=== PATIENT | female | born 1990 | race Caucasian/White ===

== ENCOUNTER → 2024-04-27 09:15 | Outpatient (BNV) | payer OTHER, SELFPAY | PROVIDERS: Visit Provider Psychiatry & Neurology Psychiatry | DX: F34.89 Other specified persistent mood disorders (principal); F90.9 Attention-deficit hyperactivity disorder, unspecified type; F41.3 Other mixed anxiety disorders; F43.10 Post-traumatic stress disorder, unspecified | CPT/HCPCS: 99214 ==

== ENCOUNTER 2024-05-01 08:43 | Outpatient (REF) | payer OTHER, SELFPAY ==
--- NOTE | 2024-05-01 | ECG_ITS ---
Test Reason : f39, f90.8 Blood Pressure : / mmHG Vent. Rate : 068 BPM Atrial Rate : 068 BPM P-R Int : 154 ms QRS Dur : 080 ms QT Int : 370 ms P-R-T Axes : 047 070 071 degrees QTc Int : 393 ms Normal sinus rhythm Normal ECG No previous ECGs available Referred By: Saloni Mixon Electronically Signed By:DONTRELL HENRY MD
[2024-05-01 09:23] LABS: MANUAL DIFF FLAG NO
[2024-05-01 09:27] LABS: Basophils Percent Auto 0.5 % (0-2); Eosinophils Absolute Auto 0.1 X10*3/uL (0.0-0.4); Eosinophils Percent Auto 0.8 % (0-4); Hematocrit 40.9 % (37.0-47.0); Imm Gran Abs Auto 0.01 X10*3/uL (0.00-0.03); Imm Gran Pct Auto 0.2 % (0.0-0.4); Lymphocytes Absolute Auto 2.5 X10*3/uL (1.2-4.9); Lymphocytes Percent Auto 39.7 % (20-40); Mean Corpuscular HGB Conc 34.2 g/dl (31.0-35.0); Mean Corpuscular Hemoglobin 30.9 pg (27.0-33.0); Mean Corpuscular Volume 90.3 fL (80.0-98.0); Mean Platelet Volume 11.4 fL (9.4-12.3); Monocytes Absolute Auto 0.4 X10*3/uL (0.1-1.2); Monocytes Percent Auto 5.9 % (2-11); Neutrophils Absolute Auto 3.4 x10*3/uL (2.0-8.3); Neutrophils Percent Auto 52.9 % (45-73); Platelet Count 243 X10*3/uL (160-400); Red Blood Count 4.53 X10*6/uL (4.20-5.50); Red Cell Distribution Width 11.5 % (11.0-16.0); White Blood Count 6.3 X10*3/uL (4.8-10.8)
[2024-05-01 09:36] LABS: Estimated Average Glucose 105 mg/dL; Hemoglobin A1C 121.4003 umol/L; Hemoglobin A1c % 5.3 % (<6.0); Total Hemoglobin (HGBA1C) 3483.5756 umol/L
[2024-05-01 10:05] LABS: Iron 117 mcg/dL (30-160); Magnesium 2.1 mg/dL (1.6-2.6); Percent Iron Saturation 38 % (15-50); Total Iron Binding Capacity 312 mcg/dL (228-428); Unsaturated Iron Binding 195 ug/dL
[2024-05-01 10:12] LABS: Syphilis Screen Nonreactive (Nonreactive)
[2024-05-01 10:15] LABS: Ferritin 41 ng/mL (10-122); Free T4 (Free Thyroxine) 1.06 ng/dL (0.71-1.85); Thyroid Stimulating Hormone 2.78 uIU/mL (0.32-4.0); Vitamin D 25-OH Total 18.3 ng/mL (>30)
[2024-05-01 10:17] LABS: HBc Num1 0.15 S/CO (0.00-0.79); HIV AB/AG Nonreactive (Nonreactive); HIV Num 1 0.05 S/CO (0.00-0.99); Hepatitis B Core Antibody Nonreactive (Nonreactive); Hepatitis B Surface Antigen Negative (Negative); ~HepC Num1 0.22 S/CO (0.00-0.79); ~Hepatitis B Surface Antibody NONREACTIVE (Nonreactive); ~Hepatitis C Antibody Nonreactive (Nonreactive)
[2024-05-01 10:27] LABS: Folate 13.6 ng/mL (> or = 4.0); Vitamin B12 437 pg/mL (200-900)
[2024-05-01 12:12] LABS: CT PCR NOT DETECTED (Not Detect.); NG PCR NOT DETECTED (Not Detect.)
[2024-05-02 17:19] LABS: Homocysteine 7.5 umol/L (<10.4)
[2024-05-02 18:23] LABS: Prolactin 60.4 ng/mL
--- OUTSIDE RECORDS SUMMARY | 2024-05-02 19:05 | XMS_ITS | Data Portability ---
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 The member reports experiencing these symptoms since high school but worse in the past 1.5 months. She began self treatment with Prevacid 3 weeks ago. Differential diagnosis includes: GERD, PUD, Duodenal ulcer, EOE, Celiac Disease, H.pylori and SIBO. To further evaluate and manage the member's symptoms, the following steps will be taken: -Discussion of possible causes of bloating, including dietary factors, gastrointestinal conditions, and stress. -Labs to include CBC, CMP, Celiac and H.pylori stool -Member advised to stop prevacid for 2 full weeks before leaving stool sample. -Recommended famotidine 20mg BID to maintain acid control while off PPI. then may resume after leaving stool sample if needed. -[facility] is noted to increase symptoms -[facility] at [facility] as she is feeling better and knows her food triggers. - Patient educated on lifestyle changes for GERD such as the importance of healthy weight maintenance, small, frequent meals, sleeping with the head of the bed elevated, not eating within 3 hours of lying down at night and avoiding reflux aggravating foods such as fried, greasy, spicy, citrus fruits, tomato based foods, chocolate, coffee, ETOH, smoking, marijuana, etc. Also to avoid sparkling beverages, drinking from a straw and sugar free gum to help prevent bloating and cramping. -Recommend Low Fodmap diet, this was reviewed. -Barium swallow vs EGD to evaluate for PUD, Duodenal ulcer, structure or EOE d/t vermin exterminator GERD, epigastric pain on empty stomach and dysphagia=will discuss with supervising MD. -looser stools may be from lansoprazole or recently starting flagyl. if does not self resolve can incorporate a fiber supplement to help bulk stool. -Possibly extend course of flagyl as this may be treating SIBO. Will discuss with supervising MD. Plan for Follow-up: The patient will follow up 6 weeks to assess the response to treatment and adjust the management plan accordingly. If there are any significant changes in symptoms or the appearance of new symptoms, the patient is instructed to chat or seek medical attention sooner. Acuity Level Assessment Sample dialogue: ? Over the past 30 days, to what extent did your GI symptoms impact your usual activities such as work, self-care, or spending time with others? Perceived stress level: High Quality of life impact: Moderate Referral to: Provider Additional comments: CC Orders: Labs: yes Rx - pharmacy/OTC: yes Scope Referral: pending MD consult Followup with PCP: as scheduled RD/HC/BHP referrals (no traditional HC): Follow-up Appointment: 6 weeks Reminder SUPRIYA: Make sure ICD 10 code is added to encounter [email or web address] Not available 04/09/2023 21:08:49 Plan of Treatment Reminders Order Date Submit Date Provider Last Modified By Organization Details Last Modified Time Details Appointments None recorded. Lab CBC w/ auto diff 2022 023 [facility], [address] [place], [address], 4 23:29:23 CMP, serum or plasma 2022 023 [facility], [address], [place], [address], 4 23:29:22 H pylori Ag, stool 2022 023 [facility], [address] [place], [address], 4 12:36:01 celiac disease comprehensi ve panel, serum 2022 023 [facility], [address] [facility], [place], [address], 4 23:29:24 Referral None recorded. Procedures None recorded. Surgeries None recorded. Imaging None recorded. Medication Orders None recorded. Patient TargetsNo targets recorded. Patient Instructions Encounter Date Encounter Id Patient Instructions Last Modified By Organization Details Last Modified Time 04/08/2023 [id number] Rodo Solano, It was wonderful to meet you today. I look forward to working with you on your journey to GI wellness. Please see below for a summary of today's goals and plan we discussed during our time together: 1. You have been referred to a GI Behavioral Health Provider who will assist you with personalized behavioral strategies designed to improve your GI symptoms and enhance your overall functioning. 2 I have sent your lab tests to include CBC, CMP, Celiac and H.pylori stool to your preferred lab. Please remember to stop prevacid for 2 full weeks before leaving stool sample. - I recommend famotidine 20mg BID to maintain acid control while off PPI. Then you may stop famotidine and may resume prevacid after leaving stool sample. 3. Here are some important tips to try to help reduce your symptoms: maintain a healthy weight, eat small, frequent meals, get regular exercise, sleep with the head of the bed elevated about 30 degrees, maintain good hydration and fiber intake, avoid eating within 3 hours of lying down at night and avoiding reflux aggravating foods such as fried, greasy, spicy, citrus fruits, tomato based foods, chocolate, coffee, alcohol and smoking (including marijuana), etc. Also try to avoid sparkling beverages, drinking from a straw and sugar free gum to help prevent bloating and cramping. -I recommend a Low Fodmap diet. It may be helpful to keep a food diary to document your food and stress triggers. https://resources .[employer].com/d ietary-guide/comp mmuocaguy-zsgr-gk -ndh-cgckoy-rjhl/ 4. Looser stools may be from the prevacid or flagyl. if does not self resolve can incorporate a fiber supplement to help bulk stool. 5. I will discuss with my supervising MD if we should pursue a barium swallow vs EGD to evaluate your vermin exterminator heartburn and trouble swallowing. I will let you know next week. Your care team referrals have been processed. You can self-schedule your appointments within the supriya. You are also welcome to chat the Care Coordination team with any questions, concerns or updates. It was a pleasure meeting with you today and I look forward to seeing you in follow-up in 6 weeks. Kindly, AMISHA Munoz [email or web address] Not available 04/09/2023 21:11:10 Reason for Referral None Reported. Results Created Date Observation Date Name Description Value Unit Range Abnormal Flag Note LastModifiedBy Organization Detail LastModifiedTime 07/11/19 24 07/11/2023 COMPR EHENS JOHNNA METAB OLIC PANEL glucose 96 mg/dL 65-139 normal Non-f astin g refer ence inter ameena Not Available [facility] [address], [address], 07/11/2023 23:29:22 07/11/19 24 07/11/2023 COMPR EHENS JOHNNA METAB OLIC PANEL urea nitrogen (BUN) 10 mg/dL 7-25 normal Not Available [facility] [address], [address], 07/11/2023 23:29:22 07/11/19 24 07/11/2023 COMPR EHENS JOHNNA METAB OLIC PANEL creatinine 0.75 mg/dL 0.50-0 .97 normal Not Available [facility] [address], [address], 07/11/2023 23:29:22 07/11/19 24 07/11/2023 COMPR EHENS JOHNNA METAB OLIC PANEL eGFR 109 mL/mi n/1.7 3m2 > or = 60 normal Not Available [facility] [address], [address], 07/11/2023 23:29:22 07/11/19 24 07/11/2023 COMPR EHENS JOHNNA METAB OLIC PANEL BUN/creatini ne ratio SEE NOTE: (calc ) 6-22 Not Repor lenin: BUN and Creat inine are withi n refer ence range . Not Available [facility] [address], [place], [address], 07/11/2023 23:29:22 07/11/19 24 07/11/2023 COMPR EHENS JOHNNA METAB OLIC PANEL sodium 140 mmol/ L 135-14 6 normal Not Available [facility] [address], [place], [address], 07/11/2023 23:29:22 07/11/19 24 07/11/2023 COMPR EHENS JOHNNA METAB OLIC PANEL potassium 4.0 mmol/ L 3.5-5. 3 normal Not Available [facility] [address], [place], [address], 07/11/2023 23:29:22 07/11/19 24 07/11/2023 COMPR EHENS JOHNNA METAB OLIC PANEL chloride 105 mmol/ L 98-110 normal Not Available [facility] [address], [place], [address], 07/11/2023 23:29:22 07/11/19 24 07/11/2023 COMPR EHENS JOHNNA METAB OLIC PANEL carbon dioxide 28 mmol/ L 20-32 normal Not Available [facility] [address], [place], [address], 07/11/2023 23:29:22 07/11/19 24 07/11/2023 COMPR EHENS JOHNNA METAB OLIC PANEL calcium 9.1 mg/dL 8.6-10 .2 normal Not Available [facility] [address], [place], [address], 07/11/2023 23:29:22 07/11/19 24 07/11/2023 COMPR EHENS JOHNNA METAB OLIC PANEL protein, total 6.9 g/dL 6.1-8. 1 normal Not Available [facility] [address], [place], [address], 07/11/2023 23:29:22 07/11/19 24 07/11/2023 COMPR EHENS JOHNNA METAB OLIC PANEL albumin 4.4 g/dL 3.6-5. 1 normal Not Available [facility] [address], [place], [address], 07/11/2023 23:29:22 07/11/19 24 07/11/2023 COMPR EHENS JOHNNA METAB OLIC PANEL globulin 2.5 g/dL_ (calc ) 1.9-3. 7 normal Not Available [facility] [address], [place], [address], 07/11/2023 23:29:22 07/11/19 24 07/11/2023 COMPR EHENS JOHNNA METAB OLIC PANEL albumin/glob ulin ratio 1.8 (calc ) 1.0-2. 5 normal Not Available [facility] [address], [place], [address], 07/11/2023 23:29:22 07/11/19 24 07/11/2023 COMPR EHENS JOHNNA METAB OLIC PANEL bilirubin, total 0.7 mg/dL 0.2-1. 2 normal Not Available [facility] [address], [place], [address], 07/11/2023 23:29:22 07/11/19 24 07/11/2023 COMPR EHENS JOHNNA METAB OLIC PANEL alkaline phosphatase 64 U/L 31-125 normal Not Available [facility] [address], [place], [address], 07/11/2023 23:29:22 07/11/19 24 07/11/2023 COMPR EHENS JOHNNA METAB OLIC PANEL AST 17 U/L 10-30 normal Not Available [facility] [place] [facility] [address], [place], [address], 07/11/2023 23:29:22 07/11/19 24 07/11/2023 COMPR EHENS JOHNNA METAB OLIC PANEL ALT 13 U/L 6-29 normal Not Available [facility] [address], [place], [address], 07/11/2023 23:29:22 07/11/19 24 07/11/2023 CBC (INCL UDES DIFF/ PLT) white blood cell count 6.8 thous and/u L 3.8-10 .8 normal Not Available [facility] [address], [place], [address], 07/11/2023 23:29:23 07/11/19 24 07/11/2023 CBC (INCL UDES DIFF/ PLT) red blood cell count 4.49 augusto on/uL 3.80-5 .10 normal Not Available [facility] [address], [place], [address], 07/11/2023 23:29:23 07/11/19 24 07/11/2023 CBC (INCL UDES DIFF/ PLT) hemoglobin 13.5 g/dL 11.7-1 5.5 normal Not Available [facility] [address], [place], [address], 07/11/2023 23:29:23 07/11/19 24 07/11/2023 CBC (INCL UDES DIFF/ PLT) hematocrit 40.9 % 35.0-4 5.0 normal Not Available [facility] [address], [place], [address], 07/11/2023 23:29:23 07/11/19 24 07/11/2023 CBC (INCL UDES DIFF/ PLT) MCV 91.1 fL 80.0-1 00.0 normal Not Available [facility] [place] [facility] [address], [place], [address], 07/11/2023 23:29:23 07/11/19 24 07/11/2023 CBC (INCL UDES DIFF/ PLT) MCH 30.1 pg 27.0-3 3.0 normal Not Available [facility] [place] [facility] [address], [place], [address], 07/11/2023 23:29:23 07/11/19 24 07/11/2023 CBC (INCL UDES DIFF/ PLT) MCHC 33.0 g/dL 32.0-3 6.0 normal Not Available [facility] [place] [facility] [address], [place], [address], 07/11/2023 23:29:23 07/11/19 24 07/11/2023 CBC (INCL UDES DIFF/ PLT) RDW 11.7 % 11.0-1 5.0 normal Not Available [facility] [place] [facility] [address], [place], [address], 07/11/2023 23:29:23 07/11/19 24 07/11/2023 CBC (INCL UDES DIFF/ PLT) platelet count 326 thous and/u L 140-40 0 normal Not Available [facility] [place] [facility] [address], [place], [address], 07/11/2023 23:29:23 07/11/19 24 07/11/2023 CBC (INCL UDES DIFF/ PLT) MPV 11.2 fL 7.5-12 .5 normal Not Available [facility] [address], [place], [address], 07/11/2023 23:29:23 07/11/19 24 07/11/2023 CBC (INCL UDES DIFF/ PLT) absolute neutrophils 3427 cells /uL 1500-7 800 normal Not Available [facility] [place] [facility] [address], [place], [address], 07/11/2023 23:29:23 07/11/19 24 07/11/2023 CBC (INCL UDES DIFF/ PLT) absolute lymphocytes 2734 cells /uL 850-39 00 normal Not Available [facility] [place] [facility] [address], [place], [address], 07/11/2023 23:29:23 07/11/19 24 07/11/2023 CBC (INCL UDES DIFF/ PLT) absolute monocytes 449 cells /uL 200-95 0 normal Not Available [facility] [place] [facility] [address], [place], [address], 07/11/2023 23:29:23 07/11/19 24 07/11/2023 CBC (INCL UDES DIFF/ PLT) absolute eosinophils 109 cells /uL 15-500 normal Not Available [facility] [place] [facility] [address], [place], [address], 07/11/2023 23:29:23 07/11/19 24 07/11/2023 CBC (INCL UDES DIFF/ PLT) absolute basophils 82 cells /uL 0-200 normal Not Available [facility] [place] [facility] [address], [place], [address], 07/11/2023 23:29:23 07/11/19 24 07/11/2023 CBC (INCL UDES DIFF/ PLT) neutrophils 50.4 % 38-80 normal Not Available [facility] [place] [facility] [address], [place], [address], 07/11/2023 23:29:23 07/11/19 24 07/11/2023 CBC (INCL UDES DIFF/ PLT) lymphocytes 40.2 % 15-49 normal Not Available [facility] [place] [facility] [address], [place], [address], 07/11/2023 23:29:23 07/11/19 24 07/11/2023 CBC (INCL UDES DIFF/ PLT) monocytes 6.6 % 0-13 normal Not Available [facility] [place] [facility] [address], [place], [address], 07/11/2023 23:29:23 07/11/19 24 07/11/2023 CBC (INCL UDES DIFF/ PLT) eosinophils 1.6 % 0-8 normal Not Available [facility] [place] [facility] [address], [place], [address], 07/11/2023 23:29:23 07/11/19 24 07/11/2023 CBC (INCL UDES DIFF/ PLT) basophils 1.2 % 0-2 normal Not Available [facility] [place] [facility] [address], [place], [address], 07/11/2023 23:29:23 07/11/19 24 07/15/2023 MARIVEL C DISEA SE COMPR EHENS JOHNNA PANEL interpretati on No serol ogica l evide nce of marivel c disea se. tTG IgA may neeraj lize in indiv idual s with marivel c disea se who maint ain a glute n-nydia e diet. Consi funmilayo HLA DQ2 and DQ8 testi ng to rule out marivel c disea se. Marivel c disea se is extre li rare in the absen ce of DQ2 or DQ8. Not Available [facility] [place] [facility] [address], [place], [address], 07/15/2023 14:35:55 07/11/19 24 07/15/2023 MARIVEL C DISEA SE COMPR EHENS JOHNNA PANEL tissue transglutami nase Ab, IgA <1.0 U/mL normal Value Inter preta tion ----- ----- ----- ---- <15.0 Antib hipolito not detec lenin > or = 15.0 Antib hipolito detec lenin Not Available [facility] [address], [address], 07/15/2023 14:35:55 07/11/19 24 07/15/2023 MARIVEL C DISEA SE COMPR EHENS JOHNNA PANEL immunoglobul in A 224 mg/dL 47-310 normal Not Available [facility] [address], [address], 07/15/2023 14:35:55 07/11/19 24 07/12/2023 HELIC OBACT ER PYLOR I AG, EIA, STOOL helicobacter pylori Ag, EIA, stool SEE NOTE HELIC OBACT ER PYLOR I AG, EIA, STOOL Micro Numbe r: [id number] Test Statu s: Final Speci men Sourc e: Stool Speci men Quali ty: Adequ ate H.pyl jesus Ag: Not Detec lenin Antim icrob ials, apple n pump inhib itors , and bismu th prepa ratio ns inhib it H. pylor i and inges tion up to two weeks prior to testi ng may cause false negat johnna resul ts. If clini mary indic ated the test shoul d be repea lenin on a new speci men obtai bob two weeks after disco ntinu ing treat ment. Refer ence Range : Not Detec lenin Not Available [facility] [address], [address], 07/12/2023 12:36:01 Result Notes None recorded. Problems Name Problem SNOMED Code Status Onset Date Resolution Date Notes Provider Name and Address Organization Details Recorded Time Abdominal bloating 102548018 Active 023 LEONEL ROSALES APN [address] [facility] [address] [address], [place], [address], [facility] [employer] [place] 3 20:26:32 Acid reflux 491153254 Active 023 LEONEL ROSALES APN [address] [facility] [address] [address], [place], [address], [facility] [employer] [place] 3 20:26:38 Anxiety 93327352 Active 023 LEONEL ROSALES [employer]GER [employer]ER [address] [facility] [address] [address], [place], [address], [facility] [employer] [place] 3 20:26:57 Problem Notes None recorded. Procedures Surgical History Date Name Laterality Status Provider Name and Address Organization Details Recorded Time extraction of wisdom tooth completed LEONEL ROSALES [employer] [address] [facility],[address] [address], [place], [address], [facility] [employer] [place] 04/09/2023 20:28:24 Imaging Results None recorded. Procedure Notes None recorded. Medical Equipment None Reported. Allergies No known drug allergies Medications Name Sig Start Date Stop Date Status Note LastModified by Organization Details LastModified Time fluconazole 150 mg tablet 04/09 completed Not Available Not Available Not Available metronidazol e 500 mg tablet active Not Available Not Available Not Available lorazepam 0.5 mg tablet active Not Available Not Available Not Available lansoprazole 15 mg capsule,clemente yed release Take 1 capsule every day by oral route. active Not Available Not Available No t Available buspirone 15 mg tablet active Not Available Not Available No t Available escitalopram 5 mg tablet active Not Available Not Available Not Available Vitals Date Recorded Body height Body mass index (BMI) Body weight Provider Name and Address Organization Details Last Updated DateTime 04/08/2023 160.02 cm 23 kg/m2 88458.01 g LEONEL ROSALES APN [address] [facility] [address] [address], [place], [address], [facility] [employer] [place] 04/09/2023 20:24:58 Social History Question Answer Notes LastModified by Organization Details LastModified Time Tobacco Smoking Status Never Smoker LEONELKALEB ROSALES APN [address] [facility],[address] [address], [place], [address], [facility] [employer] [place] 04/09/2023 20:28:15 What Is Your Level Of Alcohol Consumption? Occasional Rare, 1 Drink/mo Information not available 04/09/2023 Which Illicit Or Recreational Drugs Have You Used? Marijuana Information not available 04/09/2023 Do You Use Any Illicit Or Recreational Drugs? Yes THC Gummie Once A Month Recreationally Information not available 04/09/2023 Have You Used IV Drugs? No Information not available 04/09/2023 Do You Or Have You Ever Used Any Other Forms Of Tobacco Or Nicotine? No Information not available 04/09/2023 Sex: Unknown Functional Status None recorded. Mental Status None recorded. Family History Relationship Description Onset Age of this Age Resolved Age Notes LastModified by Organization Details LastModified Time Brother Gastroesopha geal reflux disease [email or web address] Not available 2022 20:27:18 Mother Gastroesopha geal reflux disease [email or web address] Not available 2022 20:27:18 Sister Gastroesopha geal reflux disease [email or web address] Not available 2022 20:27:18 Medical History Condition Response Pancreatitis N Colon Cancer N Depression N Diverticulitis/Diverticulosis N Arrhythmia N Fibromyalgia N Kidney Disease N Anxiety Y Small Intestinal Bowel Overgrowth (SIBO) N Clostridium difficile N Anemia N Colon Polyps N Diabetes N Hepatitis/Liver Disease N Seizures/Epilepsy N Myocardial Infarction N Hyperlipidemia N Asthma/COPD N Sleep Apnea N GERD/Reflux N Cirrhosis N Heart Disease N Hypertension N Gynecological HistoryNo gynecological history recorded. Obstetrics History GPAL:G 0 P 0 0 0 0 Past Encounters Encounter ID Performer Location Encounter Start Date Encounter Closed Date Diagnosis/Indication Diagnosis SNOMED-CT Code Diagnosis ICD10 Code [id number] LEONEL ROSALES APN [facility] [address] [place] [address] 04/08/2023 12:43:35 04/18/2023 17:50:13 Gastroesophageal reflux disease 520608401 K21.9 Abdominal bloating 33652 9008 R14.0 Esophageal dysphagia 408 87480 R13.19 Health Concerns Section Related Observation LastModified by Organization Detai ls LastModified Time None Recorded Concern Status LastModified by Organization Details LastModified Time None Recorded Advance Directives Directive None Recorded Payers Encounter Date Sequence Insurance Name Policy Number Policy River Covered Member ID River Member ID Guarantor Name 04/08/2023 1 [place] [facility] (HMO) [id number] Xiomara Gutierrez [id number] Xiomara Gutierrez Notes Date Note Type Note Provider Name and Address Organization Details Recorded Time 04/08/2023 text/html Abdominal Distension - OshiReported bypatient.Notes:Prateek suarez is a 32 yo female who presents with a chief complaint of persistent bloating and heartburn. The member reports experiencing these symptoms since high school but worse in the past 1.5 months. She began self treatment with Prevacid 3 weeks ago. Xiomara reports stomach issues since high school beginning with lactose intolerance. During college she used the low fodmap diet to control symptoms. In the past 1.5 months, heartburn and bloat has intensified no matter what she eats and occurs before and after eating. She has less bloat in the morning and it's worst in the evening. Current diet is pescetarian and lactose free, stopped caffeine, avoids citrus and acidic foods, onion and garlic. Symptoms are worse on an empty stomach with epigastric pain so has forced herself to eat every 3 hours. If hungry, she can be nauseous but no vomiting. She notes that if she feels more stressed, her symptoms are worse. She reports dysphagia over the past 1year that is now more noticeable usually with food. Feels it can be hard to push down. She points to her upper throat where she feels the food sticks, primarily bread. She is able to swallow her own secretions and liquids. Does not occur with every meal.Stools have softened to a BSS 5-6 with mild urgency up to 4 times daily since starting prevacid. Passing stool does help relieve bloating.Of note, Xiomara has started prevacid 3 weeks ago and finds her heartburn and dysphagia is better.She denies odynophagia, vomiting, constipation, diarrhea, lower abdominal pain, bloody, black/tarry stool, unintentional weight loss, NSAID use or travel. Interestingly, she is being treated for BV and currently on 1 week of flagyl (has 2 more doses). She reports her bloating symptoms are better since starting the flagyl. Denies family history of gastric or colon cancer, or polyps. [facility] sig for brother, sister and mother with heartburn. The member rates the severity of her symptoms as moderate and she expresses concern about how these symptoms are affecting daily activities and quality of life.Reflux/GERD - OshiReported bypatient.Notes:see above Gastroesophageal Reflux Disease Questionnaire Frequency of Symptoms in the Last Week {{0 (0 day) 1 (1 day) 2 (2-3 days)* 3 (4-7days)}}How often did you have a burning feeling behind your breastbone (heartburn)? {{0 (0 day)* 1 (1 day) 2 (2-3 days) 3 (4-7days)}}How often did you have stomach contents (liquid or food) moving upwards to your throat or mouth (regurgitation)? {{3 (0 day)* 2 (1 day) 1 (2-3 days) 0 (4-7 days)}}How often did you have pain in the center of the upper stomach? {{3 (0 day)* 2 (1 day) 1 (2-3 days) 0 (4-7 days)}}How often did you have nausea? {{0 (0 day)* 1 (1 day) 2 (2-3 days) 3 (4-7days)}}How often did you have difficulty getting a good night? s sleep because of your heartburn and/or regurgitation? {{0 (0 day)* 1 (1 day) 2 (2-3 days) 3 (4-7days)}}How often did you take additional medication for your heartburn and/or regurgitation, other than what the physician told you to take (such as Tums, Rolaids and Maalox)? {{0 1 2 3 4 5 6 7 8 * 9 10 11 12 13 14 15 16 17 18}} Total LEONEL ROSALES APN [address] [place] [address],[address] [address], [place], [address], [facility], AIME 04/09/2023 21:11:25 OBGyn Episode No OBEpisode recorded.
[2024-05-05 15:09] LABS: Methylmalonic Acid 61 nmol/L (55-335)
== END 2024-05-01 08:44 | disposition home or self-care (01) ==
LOC: HO.LAB 08:43
PROVIDERS: Visit Provider Psychiatry & Neurology Psychiatry
DX: F39 Unspecified mood [affective] disorder (principal); F90.8 Attention-deficit hyperactivity disorder, other type; Z13.1 Encounter for screening for diabetes mellitus; Z13.89 Encounter for screening for other disorder
CPT/HCPCS: 82306; 82607; 82728; 82746; 83036; 83090; 83540; 83735; 83921; 84146; 84439; 84443; 85025; 86704; 86706; 86780; 86803; 87340; 87389; 87491; 87591; 93005

== ENCOUNTER → 2024-05-01 09:00 | Outpatient (BNV) | payer OTHER, SELFPAY | PROVIDERS: Visit Provider Internal Medicine Cardiovascular Disease | DX: F39 Unspecified mood [affective] disorder (principal); F90.8 Attention-deficit hyperactivity disorder, other type | CPT/HCPCS: 93010 ==

== ENCOUNTER 2024-05-08 08:59 | Outpatient (REF) | payer OTHER, SELFPAY ==
--- OUTSIDE RECORDS SUMMARY | 2024-05-08 09:13 | XMS_ITS | Data Portability ---
Author Organization [facility] AIME [place] [facility] Address [address], [address], [place] [address] [place] [address] Care Team Providers Care Electronic Warfare Linguist Name Role Phone [facility] Primary Care Provider Assessment Encounter Date Assessment [...] leaving stool sample if needed. 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 Procedures None recorded. Surgeries None recorded. Imaging None recorded. Medication Orders None recorded. Patient TargetsNo targets recorded. Patient Instructions Encounter Date Encounter Id Patient Instructions Last Modified By Organization Details Last Modified Time 04/08/2023 [id number] Rodo Solano, It was wonderful to meet [...] document your food and stress triggers. https://resources .[email or web address].com/d ietary-guide/comp kftqafycy-qkba-bs -rio-tjrlpj-pivb/ 4. Looser stools may be from the prevacid or flagyl. if does not self resolve can incorporate a fiber supplement to help bulk stool. 5. 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 I will let [...] g refer ence inter ameena Not Available [employer] [facility] [address], [address], 07/11/2023 23:29:22 07/11/19 24 07/11/2023 COMPR EHENS JOHNNA METAB OLIC PANEL urea nitrogen (BUN) 10 mg/dL 7-25 normal Not Available [employer] [facility] [address], [address], 07/11/2023 23:29:22 07/11/19 24 07/11/2023 COMPR EHENS JOHNNA METAB OLIC PANEL creatinine 0.75 mg/dL 0.50-0 .97 normal Not Available [employer] [facility] [address], [address], 07/11/2023 23:29:22 07/11/19 24 07/11/2023 COMPR EHENS JOHNNA METAB OLIC PANEL eGFR 109 mL/mi n/1.7 3m2 > or = 60 normal Not Available [employer] [facility] [address], [address], 07/11/2023 23:29:22 07/11/19 24 07/11/2023 COMPR EHENS JOHNNA METAB OLIC PANEL BUN/creatini ne ratio SEE NOTE: (calc ) 6-22 Not Repor lenin: BUN and Creat inine are withi n refer ence range . Not Available [facility] [address], [place], [address], 07/11/2023 23:29:22 07/11/19 24 07/11/2023 COMPR EHENS JOHNNA METAB OLIC PANEL sodium 140 mmol/ L 135-14 6 normal Not Available [facility] [address], [place], [address], 07/11/2023 23:29:22 07/11/19 24 07/11/2023 COMPR EHENS JOHNNA METAB OLIC PANEL potassium 4.0 mmol/ L 3.5-5. 3 normal Not Available [facility] [address], [place], [address], 07/11/2023 23:29:22 07/11/19 24 07/11/2023 COMPR EHENS JOHNNA METAB OLIC PANEL chloride 105 mmol/ L 98-110 normal Not Available [facility] [address], [place], [address], 07/11/2023 23:29:22 07/11/19 24 07/11/2023 COMPR EHENS JOHNNA METAB OLIC PANEL carbon dioxide 28 mmol/ L 20-32 normal Not Available [facility] [address], [place], [address], 07/11/2023 23:29:22 07/11/19 24 07/11/2023 COMPR EHENS JOHNNA METAB OLIC PANEL calcium 9.1 mg/dL 8.6-10 .2 normal Not Available [facility] [address], [place], [address], 07/11/2023 23:29:22 07/11/19 24 07/11/2023 COMPR EHENS JOHNNA METAB OLIC PANEL protein, total 6.9 g/dL 6.1-8. 1 normal Not Available [facility] [address], [place], [address], 07/11/2023 23:29:22 07/11/19 24 07/11/2023 COMPR EHENS JOHNNA METAB OLIC PANEL albumin 4.4 g/dL 3.6-5. 1 normal Not Available [facility] [address], [place], [address], 07/11/2023 23:29:22 07/11/19 24 07/11/2023 COMPR EHENS JOHNNA METAB OLIC PANEL globulin 2.5 g/dL_ (calc ) 1.9-3. 7 normal Not Available [facility] [address], [place], [address], 07/11/2023 23:29:22 07/11/19 24 07/11/2023 COMPR EHENS JOHNNA METAB OLIC PANEL albumin/glob ulin ratio 1.8 (calc ) 1.0-2. 5 normal Not Available [facility] [address], [place], [address], 07/11/2023 23:29:22 07/11/19 24 07/11/2023 COMPR EHENS JOHNNA METAB OLIC PANEL bilirubin, total 0.7 mg/dL 0.2-1. 2 normal Not Available [facility] [address], [place], [address], 07/11/2023 23:29:22 07/11/19 24 07/11/2023 COMPR EHENS JOHNNA METAB OLIC PANEL alkaline phosphatase 64 U/L 31-125 normal Not Available [facility] [employer] [facility] [address], [place], [address], 07/11/2023 23:29:22 07/11/19 24 07/11/2023 COMPR EHENS JOHNNA METAB OLIC PANEL AST 17 U/L 10-30 normal Not Available [facility] [place] [facility] [address], [place], [address], 07/11/2023 23:29:22 07/11/19 24 07/11/2023 COMPR EHENS JOHNNA METAB OLIC PANEL ALT 13 U/L 6-29 normal Not Available [facility] [address], [place], [address], 07/11/2023 23:29:22 07/11/19 24 07/11/2023 CBC (INCL UDES DIFF/ PLT) white blood cell count 6.8 thous and/u L 3.8-10 .8 normal Not Available [facility] [address], [place], [address], 07/11/2023 23:29:23 07/11/19 24 07/11/2023 CBC (INCL UDES DIFF/ PLT) red blood cell count 4.49 augusto on/uL 3.80-5 .10 normal Not Available [facility] [address], [place], [address], 07/11/2023 23:29:23 07/11/19 24 07/11/2023 CBC (INCL UDES DIFF/ PLT) hemoglobin 13.5 g/dL 11.7-1 5.5 normal Not Available [facility] [address], [place], [address], 07/11/2023 23:29:23 07/11/19 24 07/11/2023 CBC (INCL UDES DIFF/ PLT) hematocrit 40.9 % 35.0-4 5.0 normal Not Available [facility] [address], [place], [address], 07/11/2023 23:29:23 07/11/19 24 07/11/2023 CBC (INCL UDES DIFF/ PLT) MCV 91.1 fL 80.0-1 00.0 normal Not Available [facility] [place] [facility] [address], [place], [address], 07/11/2023 23:29:23 07/11/19 24 07/11/2023 CBC (INCL UDES DIFF/ PLT) MCH 30.1 pg 27.0-3 3.0 normal Not Available [facility] [place] [facility] [address], [place], [address], 07/11/2023 23:29:23 07/11/19 24 07/11/2023 CBC (INCL UDES DIFF/ PLT) MCHC 33.0 g/dL 32.0-3 6.0 normal Not Available [facility] [place] [facility] [address], [place], [address], 07/11/2023 23:29:23 07/11/19 24 07/11/2023 CBC (INCL UDES DIFF/ PLT) RDW 11.7 % 11.0-1 5.0 normal Not Available [facility] [place] [facility] [address], [place], [address], 07/11/2023 23:29:23 07/11/19 24 07/11/2023 CBC (INCL UDES DIFF/ PLT) platelet count 326 thous and/u L 140-40 0 normal Not Available [facility] [place] [facility] [address], [place], [address], 07/11/2023 23:29:23 07/11/19 24 07/11/2023 CBC (INCL UDES DIFF/ PLT) MPV 11.2 fL 7.5-12 .5 normal Not Available [facility] [address], [place], [address], 07/11/2023 23:29:23 07/11/19 24 07/11/2023 CBC (INCL UDES DIFF/ PLT) absolute neutrophils 3427 cells /uL 1500-7 800 normal Not Available [facility] [place] [facility] [address], [place], [address], 07/11/2023 23:29:23 07/11/19 24 07/11/2023 CBC (INCL UDES DIFF/ PLT) absolute lymphocytes 2734 cells /uL 850-39 00 normal Not Available [facility] [address], [place], [address], 07/11/2023 23:29:23 07/11/19 24 07/11/2023 CBC (INCL UDES DIFF/ PLT) absolute monocytes 449 cells /uL 200-95 0 normal Not Available [facility] [facility] [address], [place], [address], 07/11/2023 23:29:23 07/11/19 24 07/11/2023 CBC (INCL UDES DIFF/ PLT) absolute eosinophils 109 cells /uL 15-500 normal Not Available [facility] [address], [place], [address], 07/11/2023 23:29:23 07/11/19 24 07/11/2023 CBC (INCL UDES DIFF/ PLT) absolute basophils 82 cells /uL 0-200 normal Not Available [facility] [address], [place], [address], 07/11/2023 23:29:23 07/11/19 24 07/11/2023 CBC (INCL UDES DIFF/ PLT) neutrophils 50.4 % 38-80 normal Not Available [facility] [address], [place], [address], 07/11/2023 23:29:23 07/11/19 24 07/11/2023 CBC (INCL UDES DIFF/ PLT) lymphocytes 40.2 % 15-49 normal Not Available [facility] [address], [place], [address], 07/11/2023 23:29:23 07/11/19 24 07/11/2023 CBC (INCL UDES DIFF/ PLT) monocytes 6.6 % 0-13 normal Not Available [facility] [place] [facility] [address], [place], [address], 07/11/2023 23:29:23 07/11/19 24 07/11/2023 CBC (INCL UDES DIFF/ PLT) eosinophils 1.6 % 0-8 normal Not Available [facility] [place] [facility] [address], [place], [address], 07/11/2023 23:29:23 07/11/19 24 07/11/2023 CBC (INCL UDES DIFF/ PLT) basophils 1.2 % 0-2 normal Not Available [facility] [facility] [address], [place], [address], 07/11/2023 23:29:23 07/11/19 24 07/15/2023 MARIVEL C [...] ce of DQ2 or DQ8. Not Available [facility] [place] [facility] [address], [place], [address], 07/15/2023 14:35:55 07/11/19 24 07/15/2023 MARIVEL C DISEA SE COMPR EHENS JOHNNA PANEL tissue transglutami nase Ab, IgA <1.0 U/mL normal Value Inter preta tion ----- ----- ----- ---- <15.0 Antib hipolito not detec lenin > or = 15.0 Antib hipolito detec lenin Not Available [facility] [address], [address], 07/15/2023 14:35:55 07/11/19 24 07/15/2023 MARIVEL C DISEA SE COMPR EHENS JOHNNA PANEL immunoglobul in A 224 mg/dL 47-310 normal Not Available [facility] [address], [address], 07/15/2023 14:35:55 07/11/19 24 07/12/2023 HELIC OBACT ER PYLOR I AG, EIA, STOOL helicobacter pylori Ag, EIA, stool SEE NOTE HELIC OBACT ER PYLOR I AG, EIA, STOOL Micro Numbe r: [id number] Test Statu s: Final Speci men [...] Range : Not Detec lenin Not Available [facility] [address], [address], 07/12/2023 12:36:01 Result Notes None recorded. Problems Name Problem SNOMED Code Status Onset Date Resolution Date Notes Provider Name and Address Organization Details Recorded Time Abdominal bloating 955628262 Active 023 LEONEL ROSALES APN [address] [facility] [address] [address], [place], [address], [facility] [place] 3 20:26:32 Acid reflux 822058785 Active 023 LEONEL ROSALES APN [address] [facility] [address] [address], [place], [address], [facility] [place] 3 20:26:38 Anxiety 39025848 Active 023 LEONEL ROSALES EXCHANGE ADMINISTRATOR [address] [facility] [address] [address], [place], [address], [facility] [place] 3 20:26:57 Problem Notes None recorded. Procedures Surgical History Date Name Laterality Status Provider Name and Address Organization Details Recorded Time extraction of wisdom tooth completed LEONEL ROSALES EXCHANGE ADMINISTRATOR [address] [facility],[address] [address], [place], [address], [facility] [place] 04/09/2023 20:28:24 Imaging Results [...] Updated DateTime 04/08/2023 160.02 cm 23 kg/m2 44729.01 g LEONEL ROSALES APN [address] [facility] [address] [address], [place], [address], [facility] [place] 04/09/2023 20:24:58 Social History Question Answer Notes LastModified by Organization Details LastModified Time Tobacco Smoking Status Never Smoker LEONELKALEB ROSALES APN [address] [facility],[address] [address], [place], [address], [facility] AIME [place] 04/09/2023 20:28:15 What Is [...] Diagnosis/Indication Diagnosis SNOMED-CT Code Diagnosis ICD10 Code [id number] LEONEL ROSALES APN [facility] [address] [place] [address] 04/08/2023 12:43:35 04/18/2023 17:50:13 Gastroesophageal reflux disease 284882698 K21.9 Abdominal bloating 75538 9008 R14.0 Esophageal dysphagia 408 84313 R13.19 Health Concerns Section Related Observation LastModified by Organization Detai ls LastModified Time None Recorded Concern Status LastModified by Organization Details LastModified Time None Recorded Advance Directives Directive None Recorded Payers Encounter Date Sequence Insurance Name Policy Number Policy River Covered Member ID River Member ID Guarantor Name 04/08/2023 1 [place] HMO [facility] (HMO) [id number] Xiomara Gutierrez [id number] Xiomara Gutierrez Notes Date Note Type [...] of gastric or colon cancer, or polyps. [facility] sig for brother, sister and mother [...] 16 17 18}} Total LEONEL ROSALES APN [address] [place] [address],[address] [address], [place], [address], [facility], AIME 04/09/2023 21:11:25 OBGyn Episode No OBEpisode recorded.
[2024-05-08 10:58] LABS: Alanine Aminotransferase 11 U/L (0-31); Albumin Level 4.4 g/dL (3.5-5.0); Alkaline Phosphatase 68 U/L (39-117); Anion Gap 12 (12-20); Aspartate Amino Transferase 24 U/L (5-31); Bilirubin Total 0.6 mg/dL (0.0-1.0); Blood Urea Nitrogen 11 mg/dL (9-16); Calcium 8.8 mg/dL (8.4-10.2); Carbon Dioxide 26 mmol/L (22-29); Chloride 104 mmol/L (96-108); Cholesterol 144 mg/dL (<200); Estimated Glomerular Filt Rate > 60; Glucose Fasting 94 mg/dL (60-99); HDL Cholesterol 43 mg/dL (>40); LDL Cholesterol Calculated 88 mg/dL (<100); Potassium 3.5 mmol/L (3.3-5.1); Sodium 138 mmol/L (135-145); Total Protein 7.3 g/dL (6.5-8.0); Triglycerides 66 mg/dL (<150)
[2024-05-15 14:23] LABS: Vitamin B1 12 nmol/L (8-30)
== END 2024-05-08 09:00 | disposition home or self-care (01) ==
LOC: HO.LAB 08:59
PROVIDERS: Visit Provider Psychiatry & Neurology Psychiatry
DX: F39 Unspecified mood [affective] disorder (principal); F90.8 Attention-deficit hyperactivity disorder, other type
CPT/HCPCS: 36415; 80053; 80061; 84207; 84425

== ENCOUNTER 2024-05-10 09:00 | Outpatient (RCR) | payer OTHER, SELFPAY ==
[2024-04-23 11:58] VITALS: BMI 24.9
[2024-04-23 12:01] VITALS: BP 120/62; PULSE 88; TEMP 37.2
--- NOTE | 2024-04-23 12:48 | PC.ADMIT ---
Patient is a 33 year old partnered female who was referred to [facility] by crisis d/t increased depression with passive Si (denied plan or intent), PTSD sxs and increased anxiety secondary to work place environment. Patient stated she self presented to crisis as she felt hopeless regarding her situation. Work changes with in the last 3 months. Patient is unsure if she is going to go back to work. She is currently taking a leave of absence from work to work on her mental health. Patient is alert and oriented x4. Calm and cooperative. She presented with depressed mood and anxious affect. She reports having passive SI however this has lessened. Feels hopeful now that she is here at [facility]. Denied any plan of intent to kill herself. She was given a copy of her safety plan if needed. Has plans to move in with her sister in the next month for more support. She also will be closer to where her partner lives. Medications reconciled with patient and patient's pharmacy. She reports she is taking medications as prescribed. She last filled Lorazepam in November 2022 and stated she uses sparingly however this prescription has . Medication education provided. Patient reports three weeks prior to going to crisis she noticed increase in alcohol use as she was drinking one drink 3-4 times a week to cope with the stress. She stated she normally would drink twice a month or less. Stated alcohol makes her feel more depressed and is limiting her use as a result.
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
--- NOTE | 2024-04-26 16:49 | HO.PHP ---
Client's case has been opened and reviewed in team.
--- NOTE | 2024-04-27 22:46 | HO.PHPPROGNO ---
Subjective Subjective Date of Service: 04/27/24 Reason For Visit: anxiety Interim History: Patient reports doing better now. Had some side effects on the first few days, heart palpitations, chest pain increased anxiety for the first hour after taking, but says that resolved after the 2nd day and now she feels it has been very helpful. I think I was just experiencing a lot of anxiety starting on the medication... now I feel much calmer . Anxiety improved. She has not been oversleeping as much, sleeping more regularly, perhaps PHP helping maintain structure. A few nights of undersleeping because not getting to bed early enough with needing to wake earlier for program. Mood still fluctuating, was feeling down this morning. Transient passive SI but feeling hopeful and more goal-directed. She is eager to start on the mood stabilizer as we previously discussed, but for now we agree to hold off starting a new med until early next week (vs over the weekend) just in case she runs into any side effects we can check in. Medication Compliance: Yes Side effects from medications: Yes (as noted above) Attending Groups: Yes Review of Systems Acute medical concerns: No Medical Review of Systems: unchanged Mental Status Exam Mental Status Exam Narrative: MSE Alert, oriented, in no acute distress. Calm, cooperative, engaged. No psychomotor agitation or neurovegetative retardation. Eye contact maintained. Mood depressed, affect variable, brighter than expected, without tearfulness or lability. Speech normal, soft, flat without slowing. Thought process linear, coherent, delay in some responses. Thought content related to stressors, +transient hopelessness, +passive SI, denies any intention, urge or plan to harm self. Denies any aggressive ideation or HI. No paranoia or delusional content elicited. No evidence of psychosis. Insight and judgment fair. Diagnostics Vital Signs (24Hr): BMI result Body Mass Index 24.9 Assessment & Plan Assessment & Plan (1) Other specified persistent mood disorders: Status: Acute Code(s): F34.89 - Other specified persistent mood disorders (2) Attention-deficit hyperactivity disorder, unspecified type: Status: Acute Code(s): F90.9 - Attention-deficit hyperactivity disorder, unspecified type (3) Other mixed anxiety disorders: Status: Acute Code(s): F41.3 - Other mixed anxiety disorders (4) Post traumatic stress disorder (PTSD): Status: Acute Code(s): F43.10 - Post-traumatic stress disorder, unspecified Plan Continue PHP VS reviewed: BP 120/62;?88 bpm on 04/23 (prior to starting guanfacine) continue guanfacine ER 1 mg daily (in AM with stimulant, or afternoon on days without stimulant) cont escitalopram 5 mg qd cont buspirone 22.5 mg BID cont dexmethylphenidate ER 20 mg qam continue other regular medications: lansoprazole 15 mg qd discussed starting ABilify 1-2 mg qd next week Routine lab work, EKG, routine planned for next week Continue to monitor l Patient educated on: diagnosis and medication risk/benefits Informed Consent: understands Reason for contiued partial hosp. stay Substantial Risk for: inability to function and med/psych decompensation Certification I certify that partial hospital treatment is medically necessary due to the symptoms and problems resulting from the patient's mental illness and the failure to treat the patient at the partial hospital level of care would likely result in the patient requiring inpatient psychiatric care which could not be prevented at a less intensive level of care. Total time managing care of this patient today __60__ minutes. Discharge Plan Discharge Attending provider: Saloni Mixon Medications: New guanfacine 1 mg tablet extended release 24 hr 1 mg PO DAILY Qty: 20 0RF Continued lansoprazole 15 mg Capsule,Delayed Release(Dr/Ec) 15 mg PO DAILY Qty: 14 0RF Rx Instructions: Patient takes OTC. buspirone 15 mg tablet 22.5 mg PO BID Qty: 42 0RF Rx Instructions: TAKE 1 AND 1/2 TABLETS BY MOUTH TWICE DAILY Last filled 01/17/24 90 day supply. escitalopram oxalate 5 mg tablet 5 mg PO DAILY Qty: 14 0RF dexmethylphenidate 20 mg capsule,ER biphasic 50-50 20 mg PO QAM Qty: 14 0RF Rx Instructions: Last filled 03/14/24. Stand Alone Forms: Patient Portal Discharge page Print Language: Hungarian
--- NOTE | 2024-05-01 11:46 | HO.PHP ---
05/11/2024? ?11:00 AM - 12:00 PM [facility] Adult Comprehensive Assessment Prog: Outpatient Site: [address] [place] [address] Staff: Thony Wise 06/18/2024? ?9:00 AM - 10:00 AM Psychiatric E/M New - Face to Face v2 Prog: Psychiatric Services Site: [address] [place] [address] Staff: FRANKLIN ARMSTRONG
--- NOTE | 2024-05-03 13:20 | PC.NURSE ---
Patient stated she wants to go to [facility] for new PCP appointment. Plans on giving her 2 week notice at work which will result in her having to go on [employer]. Patient called [facility] [address] office in [facility]. Office # [phone]. Patient gave [facility] her information. She was told that she is put on a wait list and will be receiving a call from them regarding an appointment.
--- NOTE | 2024-05-04 09:06 | HO.PHPPROGNO ---
Subjective Subjective Date of Service: 05/04/24 Reason For Visit: anxiety Interim History: Patient seen for follow-up. Still experiencing rapid shifts in mood. Had a good day or 2 last week because nothing went wrong . At the smallest of sstressors she experiences dramatic emotions that are out of proportion to the stressor. I lose it over the tiniest thing . For example received an email pertaining to work and got so depressed, she experienced a profound sense of not wanting to be alive. I feel like all the pain I've ever experienced comes flooding back..all the fear and loss and re-experiences trauma. The SI is generally passive, denies intention or plan to harm self, but can experience profound hopelessness, helpless and sometimes self loathing on and off throughout the day. She is open to starting a mood stabilizer and we reviewed options and also reviewed labs below. Still experiencing some nightmares at night,, but feels calmer through the day on guanfacine. We may consider starting guanfacine BID but will check vitals first, Denies any adverse effects from her medicaitons. Denies AH, VH, HI. Medication Compliance: Yes Side effects from medications: No Attending Groups: Yes Review of Systems Acute medical concerns: No no complaints, reviewed Medical Review of Systems: unchanged Mental Status Exam Mental Status Exam Narrative: MSE Alert, oriented, in no acute distress. Calm, cooperative, engaged. No psychomotor agitation or neurovegetative retardation. Eye contact maintained. Mood depressed, affect variable, brighter than expected, without tearfulness or lability. Speech normal, soft, flat without slowing. Thought process linear, coherent, delay in some responses. Thought content related to stressors, +transient hopelessness, +passive SI, denies any intention, urge or plan to harm self. Denies any aggressive ideation or HI. No paranoia or delusional content elicited. No evidence of psychosis. Insight and judgment fair. Diagnostics Vital Signs (24Hr): BMI result Body Mass Index 24.9 Assessment & Plan Assessment & Plan (1) Other specified persistent mood disorders: Status: Acute Code(s): F34.89 - Other specified persistent mood disorders (2) Attention-deficit hyperactivity disorder, unspecified type: Status: Acute Code(s): F90.9 - Attention-deficit hyperactivity disorder, unspecified type (3) Other mixed anxiety disorders: Status: Acute Code(s): F41.3 - Other mixed anxiety disorders (4) Post traumatic stress disorder (PTSD): Status: Acute Code(s): F43.10 - Post-traumatic stress disorder, unspecified (5) Vitamin D deficiency: Status: Acute Code(s): E55.9 - Vitamin D deficiency, unspecified (6) Hyperprolactinemia: Status: Inactive Code(s): E22.1 - Hyperprolactinemia Assessment and Plan: idiopathic (patient not (yet) started trtmt w ABilify) Plan start Abilify 2 mg qd continue guanfacine ER 1 mg daily (in AM with stimulant, or afternoon on days without stimulant) cont escitalopram 5 mg qd cont buspirone 22.5 mg BID cont dexmethylphenidate ER 20 mg qam continue other regular medications: lansoprazole 15 mg qd discussed starting ABilify 1-2 mg qd next week Reviewed routine lab work, EKG, routine findings: low vitamin D level 18.3: will start vit D2 50,000 IU/day for deficiency elevated prolactin 60.4. Denies any galactorrhea, visual changes. Sexually active (homosexual), no hx of . Not currently on any medications with known risk and has no hx of being treated with SGA/other antipsychotic medications in the past. We weighed out risk/benefits of starting Abilify with possiblility of further elevating prolactin, however we anticipate given patient's history only a very small dose of mood stabilizer will be needed (2-3.5 mg), and that the benefits at this time outweigh risk. Will continue to monitor prolactin level and will notify PCP or refer to endocrine. Continue to monitor Patient educated on: diagnosis, medication risk/benefits and medical condition Informed Consent: understands Certification I certify that partial hospital treatment is medically necessary due to the symptoms and problems resulting from the patient's mental illness and the failure to treat the patient at the partial hospital level of care would likely result in the patient requiring inpatient psychiatric care which could not be prevented at a less intensive level of care. Total time managing care of this patient today __40__ minutes. Discharge Plan Discharge Attending provider: Saloni Mixon Additional Instructions: 05/11/2024? ?11:00 AM - 12:00 PM CHD Adult Comprehensive Assessment Prog: Outpatient Site: [address] [place] [address] Staff: Thony Wise 06/18/2024? ?9:00 AM - 10:00 AM Psychiatric E/M New - Face to Face v2 Prog: Psychiatric Services Site: [address] [place] [address] Staff: FRANKLIN ARMSTRONG PCP appointment with [facility]. [address] [place] [address] office in [facility]. Office # [phone]. Patient gave [facility] her information. She was told she was put on a wait list and will be receiving a call from them regarding an appointment. Medications: New guanfacine 1 mg tablet extended release 24 hr 1 mg PO DAILY Qty: 20 0RF aripiprazole 2 mg tablet 2 mg PO DAILY Qty: 30 0RF ergocalciferol (vitamin D2) [Vitamin D2] 1,250 mcg (50,000 unit) capsule 1,250 mcg PO QWEEK Qty: 14 0RF Continued lansoprazole 15 mg Capsule,Delayed Release(Dr/Ec) 15 mg PO DAILY Qty: 14 0RF Rx Instructions: Patient takes OTC. buspirone 15 mg tablet 22.5 mg PO BID Qty: 42 0RF Rx Instructions: TAKE 1 AND 1/2 TABLETS BY MOUTH TWICE DAILY Last filled 01/17/24 90 day supply. escitalopram oxalate 5 mg tablet 5 mg PO DAILY Qty: 14 0RF dexmethylphenidate 20 mg capsule,ER biphasic 50-50 20 mg PO QAM Qty: 14 0RF Rx Instructions: Last filled 03/14/24. Stand Alone Forms: Patient Portal Discharge page Print Language: Ukrainian
--- NOTE | 2024-05-10 22:53 | P.PNPSP_ITS ---
Subjective Subjective Date of Service: 05/10/24 Reason For Visit: anxiety Interim History: dc Diagnostics Vital Signs (24Hr): BMI result Body Mass Index 24.9 Assessment & Plan Certification I certify that partial hospital treatment is medically necessary due to the symptoms and problems resulting from the patient's mental illness and the failure to treat the patient at the partial hospital level of care would likely result in the patient requiring inpatient psychiatric care which could not be prevented at a less intensive level of care. Total time managing care of this patient today ____ minutes. Discharge Plan Discharge Attending provider: Saloni Mixon Additional Instructions: 05/11/2024? ?11:00 AM - 12:00 PM CHD Adult Comprehensive Assessment Prog: Outpatient Site: [address] [place] [address] Staff: Thony Wise 06/18/2024? ?9:00 AM - 10:00 AM Psychiatric E/M New - Face to Face v2 Prog: Psychiatric Services Site: [address] [place] [address] Staff: FRANKLIN ARMSTRONG PCP appointment with [facility]. [address] [place] [address] office in [facility]. Office # [phone]. Patient gave [facility] her information. She was told she was put on a wait list and will be receiving a call from them regarding an appointment. Medications: New guanfacine 1 mg tablet extended release 24 hr 1 mg PO DAILY Qty: 20 0RF ergocalciferol (vitamin D2) [Vitamin D2] 1,250 mcg (50,000 unit) capsule 1,250 mcg PO QWEEK Qty: 14 0RF aripiprazole 5 mg tablet 5 mg PO BEDTIME Qty: 30 0RF Continued lansoprazole 15 mg Capsule,Delayed Release(Dr/Ec) 15 mg PO DAILY Qty: 14 0RF Rx Instructions: Patient takes OTC. dexmethylphenidate 20 mg capsule,ER biphasic 50-50 20 mg PO QAM Qty: 14 0RF Rx Instructions: Last filled 03/14/24. aripiprazole 2 mg tablet 2 mg PO DAILY Qty: 30 0RF buspirone 15 mg tablet 22.5 mg PO BID 30 Days Qty: 90 0RF Rx Instructions: TAKE 1 AND 1/2 TABLETS BY MOUTH TWICE DAILY Last filled 01/17/24 90 day supply. escitalopram oxalate 5 mg tablet 5 mg PO DAILY 30 Days Qty: 30 0RF Stand Alone Forms: Patient Portal Discharge page Patient Education: Stress (DC), Mood Disorders (DC), ADHD in Adults (DC), Post Traumatic Stress Disorder (DC) Print Language: Sinhala
== END 2024-05-10 23:59 | disposition home or self-care (01) ==
LOC: HO.PHPA 09:00
PROVIDERS: Visit Provider Psychiatry & Neurology Psychiatry
DX: F34.89 Other specified persistent mood disorders (principal); F90.9 Attention-deficit hyperactivity disorder, unspecified type; F41.3 Other mixed anxiety disorders; F43.10 Post-traumatic stress disorder, unspecified; E55.9 Vitamin D deficiency, unspecified; E22.1 Hyperprolactinemia; Z79.899 Other long term (current) drug therapy
CPT/HCPCS: 90791; 90853